=== PATIENT | female | born 1960 | race Native Hawaiian/Other Pacific Islander ===

== ENCOUNTER 2018-03-07 17:01 | Emergency (ER) | payer BC ==
[~2018-03-07] VITALS: Ht 162.6 cm; Wt 53.5 kg
[~2018-03-07 17:01] MED LIST: AMBIEN5 MG PO; CLON1TAB18 PO; HYDROCHLOROT12.5 M1 PO; LEVO0.1224 PO; MAXALT-MLT10 MG PO; METOCLOPRAM10 MG PO; OMEPRAZOLE40 MG PO; PROM25TA52 PO; SERT50TA PO; ZOFRAN8 MG PO
[2018-03-07 18:41] LABS: PLATELET COUNT 275 K/uL (152-353)
[2018-03-07 18:59] LABS: POTASSIUM 4.1 mmol/L (3.6-5.2)
[2018-03-07 20:57] VITALS: BP 112/74; TEMP 99
== END 2018-03-07 20:58 | disposition home or self-care (01) ==
LOC: ED 17:01
DX: G43.909 Migraine, unspecified, not intractable, without status migrainosus (principal)
CPT/HCPCS: 36415; 80053; 85027; 96360; 96374; 96375; 99284; J1100; J1200; J1885; J2405; J3475

== ENCOUNTER 2018-05-27 09:07 | Emergency (ER) | payer BC ==
[~2018-05-27] VITALS: Ht 162.6 cm; Wt 49.9 kg
[2018-05-27 11:19] LABS: PLATELET COUNT 252 K/uL (152-353)
[2018-05-27 11:25] LABS: POTASSIUM 4.1 mmol/L (3.6-5.2)
[2018-05-27 15:28] VITALS: BP 118/80; TEMP 98
== END 2018-05-27 15:28 | disposition home or self-care (01) ==
LOC: ED 09:07
DX: G43.909 Migraine, unspecified, not intractable, without status migrainosus (principal)
CPT/HCPCS: 80053; 81000; 85027; 96365; 96374; 96375; 99284; J1100; J1200; J1885; J2405

== ENCOUNTER 2021-11-14 21:17 | Emergency (ER) | payer BC ==
[~2021-11-14] VITALS: Ht 162.6 cm; Wt 49.9 kg
[2021-11-14 21:17] VITALS: TEMP 99.8
[2021-11-14 21:48] LABS: PLATELET COUNT 273 K/uL (152-353)
[2021-11-14 21:58] LABS: POTASSIUM 3.2 mmol/L (3.6-5.2)
[2021-11-15 00:27] VITALS: BP 129/74
== END 2021-11-15 00:29 | disposition home or self-care (01) ==
LOC: ED 21:17
PROVIDERS: Emergency Medicine
DX: T14.8XXA Other injury of unspecified body region, initial encounter (principal); R53.83 Other fatigue; V43.53XA Car driver injured in collision with pick-up truck in traffic accident, initial encounter; Y92.488 Other paved roadways as the place of occurrence of the external cause
CPT/HCPCS: 36415; 80053; 80307; 80320; 81000; 85027; 93005; 99283

== ENCOUNTER 2021-11-28 12:04 | Emergency (ER) | payer BC ==
[~2021-11-28] VITALS: Ht 162.6 cm; Wt 49.9 kg
[2021-11-28 12:09] VITALS: TEMP 97.4
[2021-11-28 12:52] LABS: PLATELET COUNT 249 K/uL (152-353)
[2021-11-28 12:58] LABS: POTASSIUM 4.2 mmol/L (3.6-5.2)
[2021-11-28 13:28] VITALS: BP 139/83
== END 2021-11-28 13:39 | disposition home or self-care (01) ==
LOC: ED 12:04
PROVIDERS: Emergency Medicine
DX: I10 Essential (primary) hypertension (principal)
CPT/HCPCS: 80048; 84484; 85027; 93005; 96374; 99284; J0360